=== PATIENT | male | born 1940 | race Caucasian/White ===

== ENCOUNTER 2021-04-27 12:26 | Inpatient (IN) | payer MEDICARE ==
[2021-04-27 13:09] LABS: #Basophils 0.1 10x3/uL (0.0-0.2); #Monocytes 1.7 10x3/uL (0.0-1.1); #Neutrophils 15.1 10x3/uL (1.5-8.4); %Basophils 0.6 % (0.0-2.0); %Lymphocytes 11.1 % (18.0-47.0); %Neutrophils 78.7 % (40.0-75.0); Hemoglobin 12.9 g/dL (13.5-17.5); Mean Corpuscular HGB CONC 33.5 g/dL (32.0-36.0); Mean Corpuscular Hemoglobin 30.1 pg (27.0-33.0); Mean Corpuscular Volume 89.7 fl (81.2-95.1); Mean Platelet Volume 8.8 fl (7.4-10.4); Platelet Count 231 10x3/uL (150-450); RBC Distribution Width 13.6 % (11.5-14.5); Red Blood Cell (RBC) Count 4.29 10x6/uL (4.32-5.72); White Blood Cell (WBC) Count 19.2 10x3/uL (3.5-10.5)
[2021-04-27] MEDS ORDERED: Ketorolac Tromethamine 30 MG/ML VIAL ONE (13:23)
[2021-04-27] MEDS ORDERED: Ondansetron PF 4 MG/2 ML Vial ONE (13:23)
[2021-04-27 13:27] LABS: ALT (SGPT) 12 U/L (8-55); AST (SGOT) 15 U/L (5-34); Albumin 4.1 g/dL (3.4-4.8); Alkaline Phosphatase 74 U/L (40-110); Anion Gap 14 mmol/L (10-20); BUN (Urea Nitrogen) 12 mg/dL (8.4-25.7); Calc. Creatinine Clearance 0 mL/min (70-130); Calcium 9.5 mg/dL (7.8-10.44); Carbon Dioxide 26 mmol/L (23-31); Chloride 96 mmol/L (98-107); Globulin 3.1 g/dL (2.4-3.5); Glucose 111 mg/dL (83-110); Lipase 4 U/L (8-78); Potassium 4.3 mmol/L (3.5-5.1); Protein, Total 7.2 g/dL (5.8-8.1); Sodium 132 mmol/L (136-145)
[2021-04-27] MEDS ORDERED: Piperacillin/Tazobactam 3.375 GM VIAL ONE (17:02)
[2021-04-27 18:26] LABS: SARS-CoV-2 NAA Rapid Test Not Detected (NotDetected)
[2021-04-27] MEDS ORDERED: Calcium Carbonate 500 MG ChewTAB PO PRN (19:07)
[2021-04-27] MEDS ORDERED: Ondansetron PF 4 MG/2 ML Vial IVP PRN (19:07)
[2021-04-27] MEDS ORDERED: Senokot S 8.6-50 MG TAB PO PRN (19:07)
[2021-04-27] MEDS ORDERED: Zolpidem Tartrate 5 MG TAB PO PRN (19:07)
[2021-04-27] MEDS ORDERED: Guaifenesin DM 100-10/5 ML UDCUP PO PRN (19:07)
[2021-04-27] MEDS ORDERED: Morphine 4 MG/ML VIAL SLOW IVP PRN ×2 (19:13→19:37)
[2021-04-27] MEDS ORDERED: Sodium Chloride 0.9% 500 ML IV SCH (19:15)
[2021-04-27] MEDS: Rosuvastatin 20 MG TAB PO SCH (21:20)
[2021-04-27] MEDS: Tamsulosin HCl 0.4 MG CAP PO SCH (21:20)
[2021-04-27 21:34] VITALS: BMI 25.1
[2021-04-27] MEDS: Sodium Chloride 0.9% 1,000 ML IV SCH (23:19)
[2021-04-28] MEDS: Piperacillin/Tazobactam 3.375 GM in Sodium Chloride 0.9% 100 ML IVPB SCH ×3 (02:38→17:25)
[2021-04-28] MEDS: Acetaminophen 325 MG TAB PO PRN (02:38)
[2021-04-28 05:07] LABS: #Basophils 0.1 10x3/uL (0.0-0.2); #Neutrophils 10.2 10x3/uL (1.5-8.4); %Basophils 0.5 % (0.0-2.0); %Eosinophils 0.2 % (0.0-6.0); %Lymphocytes 11.1 % (18.0-47.0); %Monocytes 7.9 % (0.0-10.0); %Neutrophils 79.8 % (40.0-75.0); Mean Corpuscular HGB CONC 33.1 g/dL (32.0-36.0); Mean Corpuscular Volume 90.5 fl (81.2-95.1); Mean Platelet Volume 9.5 fl (7.4-10.4); Platelet Count 195 10x3/uL (150-450); RBC Distribution Width 13.5 % (11.5-14.5); Red Blood Cell (RBC) Count 3.67 10x6/uL (4.32-5.72); White Blood Cell (WBC) Count 12.8 10x3/uL (3.5-10.5)
[2021-04-28 05:24] LABS: ALT (SGPT) 12 U/L (8-55); AST (SGOT) 18 U/L (5-34); Albumin 3.4 g/dL (3.4-4.8); Alkaline Phosphatase 63 U/L (40-110); Anion Gap 13 mmol/L (10-20); BUN (Urea Nitrogen) 15 mg/dL (8.4-25.7); Bilirubin, Total 0.7 mg/dL (0.2-1.2); Calc. Creatinine Clearance 46 mL/min (70-130); Calcium 8.6 mg/dL (7.8-10.44); Carbon Dioxide 23 mmol/L (23-31); Chloride 97 mmol/L (98-107); Globulin 2.7 g/dL (2.4-3.5); Glucose 86 mg/dL (83-110); Potassium 3.8 mmol/L (3.5-5.1); Protein, Total 6.1 g/dL (5.8-8.1); Sodium 129 mmol/L (136-145)
[2021-04-28] MEDS: Pantoprazole 40 MG VIAL IVP SCH (08:43)
[2021-04-28] MEDS: Sodium Chloride 0.9% 1,000 ML IV SCH ×2 (08:44→15:38)
[2021-04-28] MEDS: Enoxaparin Sodium 40 MG/0.4 ML SYRINGE SC SCH (08:44)
[2021-04-28] MEDS: HYDROcodone/Acetaminophen 5/325 mg Tablet PO PRN ×3 (08:51→21:36)
[2021-04-28] MEDS ORDERED: FLU VACC QS2021-22(65YR UP)/PF 240 MCG/0.7 ML SYRINGE IM ONE (09:00)
[2021-04-28] MEDS: Tamsulosin HCl 0.4 MG CAP PO SCH (21:28)
[2021-04-28] MEDS: Rosuvastatin 20 MG TAB PO SCH (21:28)
[2021-04-29] MEDS: Sodium Chloride 0.9% 1,000 ML IV SCH ×2 (01:41→09:28)
[2021-04-29] MEDS: Piperacillin/Tazobactam 3.375 GM in Sodium Chloride 0.9% 100 ML IVPB SCH ×3 (01:41→17:59)
[2021-04-29 04:55] LABS: #Monocytes 0.9 10x3/uL (0.0-1.1); #Neutrophils 7.6 10x3/uL (1.5-8.4); %Basophils 0.3 % (0.0-2.0); %Eosinophils 0.2 % (0.0-6.0); %Lymphocytes 9.8 % (18.0-47.0); Hemoglobin 10.7 g/dL (13.5-17.5); Mean Corpuscular HGB CONC 33.1 g/dL (32.0-36.0); Mean Corpuscular Hemoglobin 30.1 pg (27.0-33.0); Mean Platelet Volume 9.4 fl (7.4-10.4); Platelet Count 185 10x3/uL (150-450); RBC Distribution Width 13.4 % (11.5-14.5); Red Blood Cell (RBC) Count 3.55 10x6/uL (4.32-5.72); White Blood Cell (WBC) Count 9.5 10x3/uL (3.5-10.5)
[2021-04-29 05:18] LABS: Anion Gap 13 mmol/L (10-20); BUN (Urea Nitrogen) 9 mg/dL (8.4-25.7); Calc. Creatinine Clearance 49 mL/min (70-130); Calcium 8.4 mg/dL (7.8-10.44); Carbon Dioxide 22 mmol/L (23-31); Chloride 102 mmol/L (98-107); Glucose 97 mg/dL (83-110); Potassium 3.7 mmol/L (3.5-5.1); Sodium 133 mmol/L (136-145)
[2021-04-29] MEDS: Acetaminophen 325 MG TAB PO PRN (05:23)
[2021-04-29] MEDS ORDERED: EPINEPHrine 1 MG/ML AMP ONE (08:01)
[2021-04-29] MEDS ORDERED: Bupivacaine 0.25% HCL 30 ML VIAL ONE (08:01)
[2021-04-29] MEDS ORDERED: PROPOFOL 20 ML ONE (08:11)
[2021-04-29] MEDS ORDERED: Fentanyl 100 MCG/2 ML VIAL ONE (08:12)
[2021-04-29] MEDS ORDERED: Lidocaine 2% PF 5 ML VIAL ONE (08:15)
[2021-04-29] MEDS ORDERED: Rocuronium Bromide 10 MG/ML (10ML VIAL) ONE (08:19)
[2021-04-29] MEDS ORDERED: Ondansetron PF 4 MG/2 ML Vial ONE (08:41)
[2021-04-29] MEDS ORDERED: Dexamethasone 4 mg/ml Vial ONE (08:41)
[2021-04-29] MEDS ORDERED: ePHEDrine Sulfate 50 MG/10 ML VIAL ONE (08:42)
[2021-04-29] MEDS: Pantoprazole 40 MG VIAL IVP SCH (09:27)
[2021-04-29] MEDS: Enoxaparin Sodium 40 MG/0.4 ML SYRINGE SC SCH (09:27)
[2021-04-29] MEDS ORDERED: Glycopyrrolate 0.2 MG/ML 5 ML SYRINGE ONE (09:46)
[2021-04-29] MEDS: HYDROcodone/Acetaminophen 5/325 mg Tablet PO PRN ×2 (14:01→21:54)
[2021-04-29] MEDS ORDERED: Atorvastatin Calcium 10 MG TAB PO SCH (21:00)
[2021-04-29] MEDS: Tamsulosin HCl 0.4 MG CAP PO SCH (21:54)
[2021-04-30] MEDS: Piperacillin/Tazobactam 3.375 GM in Sodium Chloride 0.9% 100 ML IVPB SCH ×2 (01:46→09:22)
[2021-04-30 04:57] LABS: #Monocytes 0.5 10x3/uL (0.0-1.1); #Neutrophils 6.4 10x3/uL (1.5-8.4); %Basophils 0.1 % (0.0-2.0); %Lymphocytes 8.6 % (18.0-47.0); Hemoglobin 10.7 g/dL (13.5-17.5); Mean Corpuscular HGB CONC 33.2 g/dL (32.0-36.0); Mean Corpuscular Hemoglobin 30.1 pg (27.0-33.0); Mean Corpuscular Volume 90.7 fl (81.2-95.1); Mean Platelet Volume 8.9 fl (7.4-10.4); Platelet Count 217 10x3/uL (150-450); RBC Distribution Width 13.6 % (11.5-14.5); Red Blood Cell (RBC) Count 3.55 10x6/uL (4.32-5.72); White Blood Cell (WBC) Count 7.7 10x3/uL (3.5-10.5)
[2021-04-30 05:07] LABS: ALT (SGPT) 27 U/L (8-55); AST (SGOT) 60 U/L (5-34); Albumin 3.2 g/dL (3.4-4.8); Alkaline Phosphatase 71 U/L (40-110); Anion Gap 13 mmol/L (10-20); BUN (Urea Nitrogen) 11 mg/dL (8.4-25.7); Bilirubin, Total 0.3 mg/dL (0.2-1.2); Calc. Creatinine Clearance 48 mL/min (70-130); Calcium 8.6 mg/dL (7.8-10.44); Carbon Dioxide 23 mmol/L (23-31); Chloride 103 mmol/L (98-107); Glucose 126 mg/dL (83-110); Magnesium 2.2 mg/dL (1.6-2.6); Phosphorus 2.9 mg/dL (2.3-4.7); Potassium 3.8 mmol/L (3.5-5.1); Protein, Total 6.2 g/dL (5.8-8.1); Sodium 135 mmol/L (136-145)
[2021-04-30] MEDS ORDERED: ESOMEPRAZOLE MAGNESIUM 40 MG PO SCH (09:00)
[2021-04-30] MEDS: Enoxaparin Sodium 40 MG/0.4 ML SYRINGE SC SCH (09:20)
[2021-04-30] MEDS: Aspirin 81 mg Enteric Coated Tablet PO SCH (09:21)
[2021-04-30] MEDS: Amlodipine 10 MG TAB PO SCH (09:21)
[2021-04-30] MEDS: Terazosin HCl 1 MG CAP PO SCH (09:29)
[2021-04-30] MEDS: HYDROcodone/Acetaminophen 5/325 mg Tablet PO PRN (09:29)
[2021-04-30] MEDS ORDERED: Losartan Potassium 50 MG TAB PO SCH (18:00)
[2021-04-30] MEDS: Ciprofloxacin 500 MG TAB PO SCH (20:08)
[2021-04-30] MEDS ORDERED: Tamsulosin HCl 0.4 MG CAP PO SCH (21:00)
[2021-05-01 04:10] LABS: #Monocytes 0.7 10x3/uL (0.0-1.1); #Neutrophils 5.9 10x3/uL (1.5-8.4); %Basophils 0.3 % (0.0-2.0); %Eosinophils 0.3 % (0.0-6.0); %Lymphocytes 14.1 % (18.0-47.0); %Monocytes 8.5 % (0.0-10.0); %Neutrophils 76.3 % (40.0-75.0); Hemoglobin 11.5 g/dL (13.5-17.5); Mean Corpuscular HGB CONC 33.4 g/dL (32.0-36.0); Mean Corpuscular Hemoglobin 29.7 pg (27.0-33.0); Mean Corpuscular Volume 88.9 fl (81.2-95.1); Mean Platelet Volume 8.7 fl (7.4-10.4); Platelet Count 238 10x3/uL (150-450); RBC Distribution Width 13.6 % (11.5-14.5); Red Blood Cell (RBC) Count 3.87 10x6/uL (4.32-5.72); White Blood Cell (WBC) Count 7.7 10x3/uL (3.5-10.5)
[2021-05-01 04:34] LABS: ALT (SGPT) 38 U/L (8-55); AST (SGOT) 70 U/L (5-34); Albumin 3.5 g/dL (3.4-4.8); Alkaline Phosphatase 73 U/L (40-110); Anion Gap 13 mmol/L (10-20); BUN (Urea Nitrogen) 13 mg/dL (8.4-25.7); Bilirubin, Total 0.3 mg/dL (0.2-1.2); Calc. Creatinine Clearance 48 mL/min (70-130); Calcium 9.2 mg/dL (7.8-10.44); Carbon Dioxide 27 mmol/L (23-31); Chloride 102 mmol/L (98-107); Globulin 3.3 g/dL (2.4-3.5); Glucose 104 mg/dL (83-110); Magnesium 2.4 mg/dL (1.6-2.6); Phosphorus 1.4 mg/dL (2.3-4.7); Potassium 3.6 mmol/L (3.5-5.1); Protein, Total 6.8 g/dL (5.8-8.1); Sodium 138 mmol/L (136-145)
[2021-05-01] MEDS ORDERED: Potassium Phosphate 30 MMOL in Sodium Chloride 0.9% 250 ML 250 ML IVPB SCH (05:00)
[2021-05-01] MEDS: Ciprofloxacin 500 MG TAB PO SCH (05:54)
[2021-05-01] MEDS ORDERED: Rosuvastatin 20 MG TAB PO SCH (09:00)
[2021-05-01] MEDS ORDERED: Ferrous Sulfate 325 MG TAB PO SCH (09:00)
[2021-05-01] MEDS ORDERED: Losartan Potassium 50 MG TAB PO SCH (09:00)
[2021-05-01] MEDS ORDERED: Clopidogrel Bisulfate 75 MG TAB PO SCH (09:00)
[2021-05-01] MEDS: Aspirin 81 mg Enteric Coated Tablet PO SCH (09:10)
[2021-05-01] MEDS: Amlodipine 10 MG TAB PO SCH (09:11)
[2021-05-01] MEDS: Enoxaparin Sodium 40 MG/0.4 ML SYRINGE SC SCH (09:12)
[2021-05-01] MEDS ORDERED: Milk Of Magnesia 30 ML UDCUP PO SCH (09:45)
[2021-05-01] MEDS: Terazosin HCl 1 MG CAP PO SCH (11:18)
[2021-05-01 11:58] VITALS: BP 164/71; TEMP 96.4
[2021-05-01] MEDS ORDERED: PHOS-NAK 1 PKT PACK PO SCH (12:00)
== END 2021-05-01 12:30 | disposition home or self-care (01) | DRG 854 ==
LOC: CSHERS 12:26 → CSHTELE 18:09
PROVIDERS: ADMIT Student in an Organized Health Care Education/Training Program; ATTEND Family Medicine
PROC: 0FT44ZZ Resection of Gallbladder, Percutaneous Endoscopic Approach (ICD-10-PCS; principal; 2021-04-29)
DX: A41.9 Sepsis, unspecified organism (principal); K80.00 Calculus of gallbladder with acute cholecystitis without obstruction; N17.9 Acute kidney failure, unspecified; E87.1 Hypo-osmolality and hyponatremia; Z20.822 Contact with and (suspected) exposure to COVID-19; I25.10 Atherosclerotic heart disease of native coronary artery without angina pectoris; I12.9 Hypertensive chronic kidney disease with stage 1 through stage 4 chronic kidney disease, or unspecified chronic kidney disease; N18.2 Chronic kidney disease, stage 2 (mild); E78.5 Hyperlipidemia, unspecified; N40.0 Benign prostatic hyperplasia without lower urinary tract symptoms; K44.9 Diaphragmatic hernia without obstruction or gangrene; E86.0 Dehydration; K21.9 Gastro-esophageal reflux disease without esophagitis; Z95.1 Presence of aortocoronary bypass graft; Z79.82 Long term (current) use of aspirin; Z79.899 Other long term (current) drug therapy; Z95.0 Presence of cardiac pacemaker; I25.2 Old myocardial infarction
CPT/HCPCS: 36415; 71045; 74177; 76705; 80048; 80053; 83605; 83690; 83735; 83880; 84100; 84145; 84443; 85025; 87040; 88304; 93005; 93010; 94760; 96374; 96375; C1713; C9113; J0171; J1100; J1650; J1885; J2001; J2270; J2405; J2543; J2704; J3010; J3490; J7050; S0020; U0002

== ENCOUNTER 2021-10-11 08:41 | Outpatient (CLI) | payer MEDICARE | END 2021-10-11 08:42 | disposition home or self-care (01) | LOC: CSHULT 08:41 | PROVIDERS: ATTEND Family Medicine | DX: R74.8 Abnormal levels of other serum enzymes (principal); I70.0 Atherosclerosis of aorta; Z90.49 Acquired absence of other specified parts of digestive tract | CPT/HCPCS: 76700 ==

== ENCOUNTER 2022-11-13 10:32 | Inpatient (IN) | payer MEDICARE ==
[2022-11-13 11:52] LABS: #Basophils 0.1 10x3/uL (0.0-0.2); #Eosinphils 0.3 10x3/uL (0.0-0.5); #Neutrophils 4.8 10x3/uL (1.5-8.4); %Basophils 0.7 % (0.0-2.0); %Eosinophils 3.2 % (0.0-6.0); %Lymphocytes 23.2 % (18.0-47.0); %Monocytes 12.6 % (0.0-10.0); %Neutrophils 59.9 % (40.0-75.0); Hematocrit 39.9 % (38.8-50.0); Hemoglobin 13.2 g/dL (13.5-17.5); Mean Corpuscular HGB CONC 33.1 g/dL (32.0-36.0); Mean Corpuscular Hemoglobin 30.7 pg (27.0-33.0); Mean Corpuscular Volume 92.8 fl (81.2-95.1); Mean Platelet Volume 9.7 fl (7.4-10.4); Platelet Count 277 10x3/uL (150-450); White Blood Cell (WBC) Count 8.1 10x3/uL (3.5-10.5)
[2022-11-13 12:07] LABS: ALT (SGPT) 281 U/L (8-55); AST (SGOT) 108 U/L (5-34); Albumin 4.5 g/dL (3.4-4.8); Alkaline Phosphatase 307 U/L (40-110); Anion Gap 15 mmol/L (10-20); BUN (Urea Nitrogen) 16 mg/dL (8.4-25.7); Bilirubin, Total 0.5 mg/dL (0.2-1.2); Calc. Creatinine Clearance 0 mL/min (70-130); Calcium 9.6 mg/dL (7.8-10.44); Carbon Dioxide 24 mmol/L (23-31); Chloride 103 mmol/L (98-107); Estimated GFR 36; Globulin 3.1 g/dL (2.4-3.5); Glucose 85 mg/dL (83-110); Lipase 17 U/L (8-78); Protein, Total 7.6 g/dL (5.8-8.1); Sodium 138 mmol/L (136-145)
[2022-11-13 12:10] LABS: Troponin I Less than 0.010 ng/mL (< 0.028)
[2022-11-13] MEDS ORDERED: Iopamidol 300 61% 100 ML VIAL FS ONE (13:24)
[2022-11-13] MEDS ORDERED: Acetaminophen 325 MG TAB PO PRN (13:53)
[2022-11-13] MEDS ORDERED: HYDROcodone/Acetaminophen 5/325 mg Tablet PO PRN (13:53)
[2022-11-13] MEDS ORDERED: Ondansetron ODT 4 MG TAB PO PRN (13:53)
[2022-11-13 14:50] LABS: Troponin I Less than 0.010 ng/mL (< 0.028)
[2022-11-13] MEDS: Sodium Chloride 0.9% 1,000 ML IV SCH (17:47)
[2022-11-13] MEDS ORDERED: Famotidine 20 MG TAB PO SCH (21:00)
[2022-11-13 21:16] LABS: Bilirubin Neg (Negative); Blood, Urine 25 (Negative); Clarity Clear (Clear); Glucose, Urine (Dipstick) Normal (Negative); Ketone, Urine Negative (Negative); Leukocyte Negative (Negative); Nitrite Negative (Negative); Protein, Urine (Dipstick) 30 mg/dl (Neg-Trace); Urobilinogen Normal mg/dL (Less than 2)
[2022-11-13 21:40] LABS: Bacteria/HPF None Seen HPF (None Seen); CAUTI Indications for Culture Fever or rigors; RBC/HPF 0-3 HPF (0-3); Squamous Epithelial None Seen HPF (0-3); Urine Culture Reflex No No; WBC/HPF None Seen HPF (0-3)
[2022-11-13 23:55] LABS: HBCM Index 0.06 S/CO (0-0.79); HBSAg Index 0.22 S/CO (0-0.99); Hep A IgM AB Non-Reactive S/CO (NonReactive); Hep B Surf Ag Non-Reactive S/CO (NonReactive); Hep C IgG Ab Non-Reactive S/CO (NonReactive); Hep C Index 0.06 S/CO (0-0.79); Hepatitis B Core IgM Abs Non-Reactive S/CO (NonReactive)
[2022-11-14] MEDS ORDERED: diphenhydrAMINE 25 MG CAP PO SCH (00:30)
[2022-11-14] MEDS: Sodium Chloride 0.9% 1,000 ML IV SCH ×2 (03:15→11:30)
[2022-11-14 05:25] LABS: #Basophils 0.1 10x3/uL (0.0-0.2); #Eosinphils 0.3 10x3/uL (0.0-0.5); #Monocytes 0.5 10x3/uL (0.0-1.1); #Neutrophils 2.6 10x3/uL (1.5-8.4); %Basophils 1.6 % (0.0-2.0); %Eosinophils 6.3 % (0.0-6.0); %Lymphocytes 29.2 % (18.0-47.0); %Monocytes 10.7 % (0.0-10.0); %Neutrophils 51.8 % (40.0-75.0); Hematocrit 36.9 % (38.8-50.0); Hemoglobin 12.1 g/dL (13.5-17.5); Mean Corpuscular HGB CONC 32.8 g/dL (32.0-36.0); Mean Corpuscular Hemoglobin 30.3 pg (27.0-33.0); Mean Corpuscular Volume 92.5 fl (81.2-95.1); Mean Platelet Volume 9.6 fl (7.4-10.4); Platelet Count 261 10x3/uL (150-450); RBC Distribution Width 12.9 % (11.5-14.5); Red Blood Cell (RBC) Count 3.99 10x6/uL (4.32-5.72); White Blood Cell (WBC) Count 5.1 10x3/uL (3.5-10.5)
[2022-11-14 05:31] LABS: ALT (SGPT) 189 U/L (8-55); AST (SGOT) 54 U/L (5-34); Albumin 3.8 g/dL (3.4-4.8); Alkaline Phosphatase 245 U/L (40-110); Anion Gap 13 mmol/L (10-20); BUN (Urea Nitrogen) 12 mg/dL (8.4-25.7); Bilirubin, Total 0.4 mg/dL (0.2-1.2); Calc. Creatinine Clearance 45 mL/min (70-130); Carbon Dioxide 24 mmol/L (23-31); Chloride 108 mmol/L (98-107); Estimated GFR 50; Globulin 2.8 g/dL (2.4-3.5); Glucose 88 mg/dL (83-110); Potassium 4.2 mmol/L (3.5-5.1); Protein, Total 6.6 g/dL (5.8-8.1); Sodium 141 mmol/L (136-145)
[2022-11-14] MEDS: LevoFLOXacin 750 mg/D5W 750 MG in Premix Bag 1 BAG IVPB SCH (11:30)
[2022-11-14] MEDS ORDERED: Amlodipine 5 MG TAB PO SCH (14:00)
[2022-11-14] MEDS ORDERED: Famotidine 20 MG TAB PO SCH (21:00)
[2022-11-15 05:19] LABS: ALT (SGPT) 138 U/L (8-55); AST (SGOT) 35 U/L (5-34); Alkaline Phosphatase 229 U/L (40-110); Anion Gap 14 mmol/L (10-20); BUN (Urea Nitrogen) 12 mg/dL (8.4-25.7); Bilirubin, Direct 0.2 mg/dL (0.1-0.3); Bilirubin, Total 0.3 mg/dL (0.2-1.2); Calc. Creatinine Clearance 47 mL/min (70-130); Calcium 9.4 mg/dL (7.8-10.44); Carbon Dioxide 23 mmol/L (23-31); Chloride 104 mmol/L (98-107); Estimated GFR 59; Glucose 92 mg/dL (83-110); Potassium 3.8 mmol/L (3.5-5.1); Protein, Total 6.8 g/dL (5.8-8.1); Sodium 137 mmol/L (136-145)
[2022-11-15] MEDS: Aspirin 81 mg Enteric Coated Tablet PO SCH (10:17)
[2022-11-15] MEDS: Clopidogrel Bisulfate 75 MG TAB PO SCH (10:18)
[2022-11-15] MEDS: Amlodipine 10 MG TAB PO SCH (10:18)
[2022-11-15] MEDS: Tamsulosin HCl 0.4 MG CAP PO SCH (10:18)
[2022-11-15] MEDS: Rosuvastatin 20 MG TAB PO SCH (10:19)
[2022-11-15] MEDS ORDERED: traZODone HCl 50 MG TAB PO SCH (21:00)
[2022-11-16 04:57] LABS: #Basophils 0.1 10x3/uL (0.0-0.2); #Eosinphils 0.2 10x3/uL (0.0-0.5); #Monocytes 0.7 10x3/uL (0.0-1.1); #Neutrophils 3.4 10x3/uL (1.5-8.4); %Eosinophils 3.3 % (0.0-6.0); %Lymphocytes 26.5 % (18.0-47.0); %Monocytes 11.2 % (0.0-10.0); %Neutrophils 57.5 % (40.0-75.0); Hematocrit 38.1 % (38.8-50.0); Hemoglobin 13.1 g/dL (13.5-17.5); Mean Corpuscular HGB CONC 34.4 g/dL (32.0-36.0); Mean Corpuscular Hemoglobin 30.5 pg (27.0-33.0); Mean Corpuscular Volume 88.8 fl (81.2-95.1); Platelet Count 268 10x3/uL (150-450); RBC Distribution Width 12.6 % (11.5-14.5); Red Blood Cell (RBC) Count 4.29 10x6/uL (4.32-5.72); White Blood Cell (WBC) Count 5.8 10x3/uL (3.5-10.5)
[2022-11-16 05:16] LABS: ALT (SGPT) 97 U/L (8-55); AST (SGOT) 26 U/L (5-34); Albumin 3.9 g/dL (3.4-4.8); Alkaline Phosphatase 209 U/L (40-110); Anion Gap 15 mmol/L (10-20); BUN (Urea Nitrogen) 12 mg/dL (8.4-25.7); Bilirubin, Total 0.6 mg/dL (0.2-1.2); Calc. Creatinine Clearance 43 mL/min (70-130); Calcium 9.5 mg/dL (7.8-10.44); Carbon Dioxide 22 mmol/L (23-31); Chloride 105 mmol/L (98-107); Estimated GFR 55; Globulin 2.7 g/dL (2.4-3.5); Glucose 94 mg/dL (83-110); Potassium 3.5 mmol/L (3.5-5.1); Protein, Total 6.6 g/dL (5.8-8.1); Sodium 138 mmol/L (136-145)
[2022-11-16 05:59] VITALS: BMI 25.9
[2022-11-16] MEDS ORDERED: Iopamidol 30 ML ONE (07:36)
[2022-11-16] MEDS ORDERED: Indomethacin 50 MG SUPP ONE (07:36)
[2022-11-16] MEDS ORDERED: Glucagon 1 MG/ML KIT ONE (07:37)
[2022-11-16] MEDS ORDERED: Ondansetron PF 4 MG/2 ML Vial ONE (07:58)
[2022-11-16] MEDS ORDERED: Rocuronium Bromide 10 MG/ML (10ML VIAL) ONE (07:58)
[2022-11-16] MEDS ORDERED: PROPOFOL 20 ML ONE (07:58)
[2022-11-16] MEDS ORDERED: Lidocaine 1% PF 5 ML VIAL ONE (07:58)
[2022-11-16] MEDS ORDERED: fentaNYL 50 mcg/mL 1 mL Vial ONE (07:59)
[2022-11-16] MEDS ORDERED: PHENYLEPHRINE-NS 100 MCG/ML 10 ML SYRINGE ONE (08:27)
[2022-11-16] MEDS ORDERED: ePHEDrine Sulfate 50 MG/10 ML VIAL ONE (08:30)
[2022-11-16] MEDS ORDERED: Glycopyrrolate 0.2 MG/ML 5 ML SYRINGE ONE (09:19)
[2022-11-16] MEDS: Rosuvastatin 20 MG TAB PO SCH (11:05)
[2022-11-16] MEDS: Tamsulosin HCl 0.4 MG CAP PO SCH (11:05)
[2022-11-16] MEDS: Amlodipine 10 MG TAB PO SCH (11:05)
[2022-11-16] MEDS: LevoFLOXacin 750 mg/D5W 750 MG in Premix Bag 1 BAG IVPB SCH (11:07)
[2022-11-16] MEDS: Clopidogrel Bisulfate 75 MG TAB PO SCH (11:20)
[2022-11-16] MEDS: Aspirin 81 mg Enteric Coated Tablet PO SCH (11:20)
[2022-11-17 04:39] LABS: #Basophils 0.1 10x3/uL (0.0-0.2); #Eosinphils 0.2 10x3/uL (0.0-0.5); #Monocytes 0.5 10x3/uL (0.0-1.1); #Neutrophils 3.6 10x3/uL (1.5-8.4); %Basophils 1.2 % (0.0-2.0); %Eosinophils 3.3 % (0.0-6.0); %Lymphocytes 26.3 % (18.0-47.0); %Monocytes 8.9 % (0.0-10.0); %Neutrophils 59.6 % (40.0-75.0); Hematocrit 35.8 % (38.8-50.0); Mean Corpuscular HGB CONC 33.5 g/dL (32.0-36.0); Mean Corpuscular Hemoglobin 30.4 pg (27.0-33.0); Mean Corpuscular Volume 90.6 fl (81.2-95.1); Platelet Count 253 10x3/uL (150-450); RBC Distribution Width 12.6 % (11.5-14.5); Red Blood Cell (RBC) Count 3.95 10x6/uL (4.32-5.72); White Blood Cell (WBC) Count 6.1 10x3/uL (3.5-10.5)
[2022-11-17 04:54] LABS: ALT (SGPT) 72 U/L (8-55); AST (SGOT) 24 U/L (5-34); Albumin 3.7 g/dL (3.4-4.8); Alkaline Phosphatase 180 U/L (40-110); Anion Gap 16 mmol/L (10-20); BUN (Urea Nitrogen) 13 mg/dL (8.4-25.7); Bilirubin, Total 0.4 mg/dL (0.2-1.2); Calc. Creatinine Clearance 44 mL/min (70-130); Calcium 8.8 mg/dL (7.8-10.44); Carbon Dioxide 21 mmol/L (23-31); Chloride 106 mmol/L (98-107); Estimated GFR 53; Globulin 2.3 g/dL (2.4-3.5); Glucose 97 mg/dL (83-110); Potassium 3.9 mmol/L (3.5-5.1); Sodium 139 mmol/L (136-145)
[2022-11-17] MEDS: Aspirin 81 mg Enteric Coated Tablet PO SCH (09:02)
[2022-11-17] MEDS: Rosuvastatin 20 MG TAB PO SCH (09:02)
[2022-11-17] MEDS: Tamsulosin HCl 0.4 MG CAP PO SCH (09:02)
[2022-11-17] MEDS: Clopidogrel Bisulfate 75 MG TAB PO SCH (09:03)
[2022-11-17] MEDS: Amlodipine 10 MG TAB PO SCH (09:03)
[2022-11-17 12:20] VITALS: BP 160/75; TEMP 98.3
== END 2022-11-17 11:30 | disposition home or self-care (01) | DRG 445 ==
LOC: CSHERS 10:32 → CSHTELE 13:37
PROVIDERS: ADMIT Family Medicine; ATTEND Family Medicine
PROC: 0FC98ZZ Extirpation of Matter from Common Bile Duct, Via Natural or Artificial Opening Endoscopic (ICD-10-PCS; principal; 2022-11-16)
PROC: BF131ZZ Fluoroscopy of Gallbladder and Bile Ducts using Low Osmolar Contrast (ICD-10-PCS; 2022-11-16)
DX: K80.50 Calculus of bile duct without cholangitis or cholecystitis without obstruction (principal); E87.20 Acidosis, unspecified; N17.9 Acute kidney failure, unspecified; R74.01 Elevation of levels of liver transaminase levels; I25.10 Atherosclerotic heart disease of native coronary artery without angina pectoris; I10 Essential (primary) hypertension; N40.0 Benign prostatic hyperplasia without lower urinary tract symptoms; E78.5 Hyperlipidemia, unspecified; K44.9 Diaphragmatic hernia without obstruction or gangrene; Z79.82 Long term (current) use of aspirin; Z79.899 Other long term (current) drug therapy
CPT/HCPCS: 36415; 71045; 74177; 74181; 74330; 80048; 80053; 80074; 80076; 81001; 82977; 83605; 83690; 84145; 84443; 84484; 85025; 86301; 93005; 96360; 96361; J1611; J1650; J1956; J2405; J2704; J3010; J7050; Q0162; Q9967